=== PATIENT | male | born 1990 | race African-American/Black ===

== ENCOUNTER 2022-04-24 14:25 | Emergency (ER) | payer OTHER, SELFPAY ==
[2022-04-24 14:29] VITALS: BP 123/81; PULSE 86; RESP 16; TEMP 37.4; O2SAT 100
--- NOTE | 2022-04-24 14:39 | ED.GENADULT ---
HPI - General Adult General Chief complaint: Headache Stated complaint: too much alcohol last night, headache Time Seen by Provider: 04/24/22 14:34 Source: RN notes reviewed History of Present Illness HPI narrative: Patient presents emergency department from home for nausea vomiting. Patient states that last night he began drinking [place] followed by Pamela patel. He states he woke up this morning with a frontal headache as well as several episodes of nausea vomiting unable to keep anything down his stomach is associated with epigastric abdominal pain. He denies any fevers or chills vision changes, chest pain shortness of breath diarrhea or any other symptoms Related Data Allergies Allergy/AdvReac Type Severity Reaction Status Date / Time No Known Allergies Allergy Verified 04/24/22 14:32 Review of Systems Review of Systems: Gen.: Denies fevers or chills Eyes: Denies eye pain or visual change ENT: Denies congestion Respiratory: Denies shortness of breath or cough CV: Denies chest pain or palpitations GI: See HPI Musculoskeletal: Denies back pain or muscle pain Neuro: Reports headache Skin: Denies rash Except as documented, all other systems reviewed and negative [facility] Past Medical History Medical History (Updated 04/24/22 @ 16:35 by Erik Casas DO) Patient denies significant medical history Social History Social History (Updated 04/24/22 @ 14:40 by Erik Casas DO) Smoking status: Never smoker Exam Narrative: APPEARANCE: No acute distress, nontoxic, resting in bed HEENT: Normocephalic, atraumatic, OMM RESPIRATORY: No respiratory distress, clear to auscultation bilaterally with no rhonchi wheezing or rales CARDIOVASCULAR: RRR s murmur ABDOMINAL: Soft nondistention palpation epigastric left upper quadrant, no tenderness right upper quadrant, right lower quadrant left lower quadrant no rebound or guarding MUSCULOSKELETAl: Moves all extremities. No clubbing, cyanosis or edema. NEURO: Awake and alert. Following commands, speech normal, no focal deficits SKIN:: Warm, dry. Normal Color PSYCHIATRIC: Normal affect/mood Course Course Emergency Course: Patient states he is feeling much better at this time states headache and nausea is resolved patient able to drink in ED with no emesis Discussed with patient results of workup and diagnosis. Discussed need for follow-up with primary care, proper use of medication, and reasons to return to the emergency department. Patient understands and agrees to current treatment plan Vital Signs Vital signs: Vital Signs Temperature 99.3 F 04/24/22 14:29 Pulse Rate 86 04/24/22 14:29 Respiratory Rate 16 04/24/22 14:29 Blood Pressure 123/81 04/24/22 14:29 Pulse Oximetry 100 04/24/22 14:29 Temperature 99.3 F 04/24/22 14:29 Pulse Rate 86 04/24/22 14:29 Respiratory Rate 16 04/24/22 14:29 Blood Pressure 123/81 04/24/22 14:29 Pulse Oximetry 100 04/24/22 14:29 Medical Decision Making Vital Signs Vital Signs: Vital Signs Temperature 99.3 F 04/24/22 14:29 Pulse Rate 86 04/24/22 14:29 Respiratory Rate 16 04/24/22 14:29 Blood Pressure 123/81 04/24/22 14:29 Pulse Oximetry 100 04/24/22 14:29 Temperature 99.3 F 04/24/22 14:29 Pulse Rate 86 04/24/22 14:29 Respiratory Rate 16 04/24/22 14:29 Blood Pressure 123/81 04/24/22 14:29 Pulse Oximetry 100 04/24/22 14:29 Lab Data Result diagrams: 04/24/22 15:05 04/24/22 15:05 Labs: Lab Results 04/24/22 04/24/22 Range/Units 15:05 15:05 WBC 5.4 (4.5-10.0) K/mm3 RBC 4.30 L (4.6-6.20) M/mm3 Hgb 13.9 L (14.0-18.0) g/dL Hct 41.4 L (42.0-52.0) % MCV 96.3 (80-100) fl MCH 32.3 (26-34) pg MCHC 33.6 (32-36) g/dl RDW 12.0 (11.5-14.5) % Plt Count 254 (150-375) k/mm3 MPV 8.0 (7.4-10.4) fl Immature Gran % (Auto) 0.4 (0-0.5) % Neut % (Auto) 46.5 (45.5-73.1) % Lymph % (Auto) 41.
[2022-04-24] MEDS: SODIUM CHLORIDE 0.9% IV 1,000 ML 999 ML IV CONT ×2 (15:01→15:02)
[2022-04-24] MEDS: KETOROLAC 30 MG/ML VIAL (*BKC) IV PUSH (15:02)
[2022-04-24] MEDS: ONDANSETRON INJ 4 MG/2 ML VIAL IV PUSH (15:02)
[2022-04-24] MEDS: FAMOTIDINE 20 MG/2 ML VIAL IV PUSH (15:02)
[2022-04-24 15:20] LABS: Basophils Percent Auto 0.7 % (0.2-1.2); Eosinophils Absolute Auto 0.1 K/mm3 (0-0.3); Eosinophils Percent Auto 1.3 % (0-4.4); Hematocrit 41.4 % (42.0-52.0); Hemoglobin 13.9 g/dL (14.0-18.0); Immature Granulocyte Absolute 0.02 K/mm3 (0.00-0.031); Immature Granulocyte Percent A 0.4 % (0-0.5); Lymphocytes Absolute Auto 2.26 K/mm3 (0.9-3.2); Lymphocytes Percent Auto 41.7 % (18.3-44.2); Mean Corpuscular HGB Conc 33.6 g/dl (32-36); Mean Corpuscular Hemoglobin 32.3 pg (26-34); Mean Corpuscular Volume 96.3 fl (80-100); Monocytes Absolute Auto 0.5 K/mm3 (0.1-0.6); Monocytes Percent Auto 9.4 % (2.6-8.5); Neutrophils Absolute Auto 2.5 K/mm3 (1.3-6.7); Neutrophils Percent Auto 46.5 % (45.5-73.1); Platelet Count Result 254 k/mm3 (150-375); White Blood Count 5.4 K/mm3 (4.5-10.0)
[2022-04-24 15:31] LABS: Alanine Aminotransferase 26 U/L (6-50); Albumin Level 5.2 g/dL (3.5-5.1); Alkaline Phosphatase 61 U/L (38-126); Anion Gap 17 mmol/L (8-16); Aspartate Amino Transferase 32 U/L (17-59); Bilirubin,Total 0.5 mg/dL (0.2-1.3); Blood Urea Nitrogen 18 mg/dL (9-20); Calcium 8.9 mg/dL (8.4-10.2); Carbon Dioxide 24 mmol/L (22-30); Chloride 104 mmol/L (98-107); Estimated CRCL calculation 78 ml/min; Estimated Glomerular Filt Rate > 60; Glucose 91 mg/dL (65-110); Lipase 67 U/L (23-300); Potassium 4.2 mmol/L (3.4-5.0); Sodium 145 mmol/L (137-145)
[2022-04-24 16:47] VITALS: BP 138/78; PULSE 76; RESP 18; O2SAT 99
== END 2022-04-24 16:49 | disposition home or self-care (01) ==
PROVIDERS: Emergency Provider Emergency Medicine
DX: R11.2 Nausea with vomiting, unspecified (principal); R51.9 Headache, unspecified
CPT/HCPCS: 36415; 80053; 83690; 85025; 96361; 96374; 96375; 99284; J1885; J2405; J7030